=== PATIENT | female | born 1995 | race African-American/Black ===

== ENCOUNTER 2019-08-17 13:45 | Emergency (ER) | payer MEDICAID ==
[~2019-08-17] VITALS: Ht 160 cm; Wt 65.0 kg
[2019-08-17 13:55] VITALS: BP 104/87
[2019-08-17] MEDS ORDERED: ACETAMINOPHEN 500MG TABLET PO NR (15:00)
== END 2019-08-17 15:54 | disposition home or self-care (01) ==
LOC: ER 14:48
DX: S63.591A Other specified sprain of right wrist, initial encounter (principal); X58.XXXA Exposure to other specified factors, initial encounter; Y93.89 Activity, other specified; Y92.89 Other specified places as the place of occurrence of the external cause; Y99.8 Other external cause status
CPT/HCPCS: 73110; 73130; 81025; 99284